=== PATIENT | female | born 1965 | race Caucasian/White ===

== ENCOUNTER 2022-04-09 10:22 | Inpatient (IN) | payer MEDICAID ==
[~2022-04-09] VITALS: Ht 167.6 cm; Wt 129.1 kg
[2022-04-09 10:46] LABS: BASOPHILS # (AUTO) 0.1 X10'3 (0-0.2); BASOPHILS % (AUTO) 0.8 % (0-1); EOSINOPHILS # (AUTO) 0.1 X10'3 (0-0.9); EOSINOPHILS % (AUTO) 1.4 % (0-6); HEMOGLOBIN 13.4 g/dl (12.0-16.0); LYMPHOCYTES # (AUTO) 1.3 X10'3 (1.1-4.8); LYMPHOCYTES % (AUTO) 18.6 % (21-51); MEAN CORPUSCULAR HEMOGLOBIN 31.4 PG (27.0-31.0); MEAN CORPUSCULAR HGB CONC 31.8 g/dL (33.0-36.5); MEAN CORPUSCULAR VOLUME 98.8 FL (78-98); MEAN PLATELET VOLUME 8.7 FL (7.4-10.4); MONOCYTES # (AUTO) 0.5 X10'3 (0-0.9); MONOCYTES % (AUTO) 7.6 % (2-12); NEUTROPHILS % (AUTO) 71.6 % (42-75); PLATELET COUNT 217 X10'3 (140-440); RED BLOOD COUNT 4.25 X10'6 (4.20-5.60); RED CELL DISTRIBUTION WIDTH 16.3 % (11.5-14.5)
[2022-04-09] MEDS ORDERED: furosemide 10 MG/1 ML 10ml inj IV ONE (11:00)
[2022-04-09 11:05] LABS: ALANINE AMINOTRANSFERASE 20 U/L (12-78); ALBUMIN 3.3 G/DL (3.4-5.0); ALBUMIN/GLOBULIN RATIO 0.7 (1.1-1.5); ALKALINE PHOSPHATASE 67 IU/L (46-116); ANION GAP 10 (8-16); ASPARTATE AMINO TRANSFERASE 27 U/L (10-37); BILIRUBIN,TOTAL 1.6 MG/DL (0.1-1.0); BLOOD UREA NITROGEN 9 MG/DL (7-18); BUN/CREATININE RATIO 11.4 (6.6-38.0); CALCIUM 9.1 MG/DL (8.5-10.1); CHLORIDE 101 MMOL/L (99-107); CREATININE 0.79 MG/DL (0.40-0.90); GLUCOSE 189 MG/DL (70-104); MAGNESIUM 1.8 MG/DL (1.5-2.4); SODIUM 137 MMOL/L (135-145); TOTAL CARBON DIOXIDE 26.5 MMOL/L (24-32); TOTAL PROTEIN 7.8 G/DL (6.4-8.2); eGFR 75 ML/MIN
[2022-04-09] MEDS ORDERED: metoprolol tartrate 1mg/ml inj IV ONE (12:10)
[2022-04-09] MEDS ORDERED: metoprolol tartrate 25mg tablet PO ONE (13:45)
[2022-04-09] MEDS ORDERED: magnesium hydroxide 30ml (MOM) UD suspension PO PRN (13:50)
[2022-04-09] MEDS ORDERED: acetaminophen 325mg tablet PO PRN (13:50)
[2022-04-09] MEDS ORDERED: magnesium 4gm in 100ml NS 100 ML IV PRN (13:50)
[2022-04-09] MEDS ORDERED: magnesium Cl slow-release 64mg tablet PO PRN (13:50)
[2022-04-09] MEDS ORDERED: HYDROcodone/acetaminophen 5mg/325mg tablet PO PRN (13:50)
[2022-04-09] MEDS ORDERED: potassium Cl 40MEQ/1/2NS 520ml 520 ML IV PRN (13:50)
[2022-04-09] MEDS ORDERED: ondansetron/PF 4mg/2ml inj IV PRN (13:50)
[2022-04-09] MEDS ORDERED: mag hydrox/Alum hydrox/simeth 30ml oral suspension PO PRN (13:50)
[2022-04-09] MEDS ORDERED: potassium Cl 20 mEq SR tablet PO PRN ×2 (13:50)
[2022-04-09] MEDS ORDERED: NO HOME MEDS (15:09)
--- NOTE | 2022-04-09 17:07 | NUR ---
PATIENT HAS INCREASING HEART RATE UP TO 162 BPM. PATIENT DENIES PAIN OR SOB. DR. MACIAS PAGED WITH THIS INFORMATION FOR FURTHER ORDERS.
--- NOTE | 2022-04-09 17:57 | NUR ---
Patient in room U 3018. I have received report from Laine OLIVEIRA and had the opportunity to ask questions and assume patient care. Pt settled into room. Tele applied. Pt moved from gurney to bed under own power. Addendum: 04/09/22 at 1759 by Emma Weeks RN Amended: Links added.
[2022-04-09 18:19] VITALS: BP 99/68
--- NOTE | 2022-04-09 18:21 | NUR ---
Problems reprioritized. Patient report given, questions answered & plan of care reviewed with Moustapha OLIVEIRA. Bedside report completed.Pt eating dinner. Addendum: 04/09/22 at 1822 by Emma Weeks RN Amended: Links added.
--- NOTE | 2022-04-09 18:52 | NUR ---
Patient in bed with the head of the bed in semi-fowlers. Patient is alert and oriented times 4. Call light within reach and all other personal belongings within reach of patient
[2022-04-09] MEDS: lisinopril 5mg tablet PO SCH (19:35)
[2022-04-09] MEDS: docusate sod 100mg capsule PO SCH (20:00)
[2022-04-09] MEDS: K and/or MAG REPLACEMENT MC SCH (20:00)
[2022-04-09] MEDS ORDERED: carvedilol 6.25mg tablet PO SCH (20:00)
[2022-04-10 03:00] VITALS: BP 112/85
--- NOTE | 2022-04-10 05:45 | NUR ---
Patient in bed with the head of the bed in a high-fowlers position. patient has no signs or symptoms of distress. call light within reach and all personal belongings within reach
[2022-04-10 06:00] VITALS: BP 91/64
--- NOTE | 2022-04-10 06:28 | NUR ---
Patient in room PCU 3018. I have received report from Moustapha OLIVEIRA and had the opportunity to ask questions and assume patient care. Bedside report completed. Pt awake and alert. Call light in reach. Addendum: 04/10/22 at 0636 by Emma Weeks RN Amended: Links added.
[2022-04-10 07:23] LABS: BASOPHILS # (AUTO) 0.1 X10'3 (0-0.2); BASOPHILS % (AUTO) 1.3 % (0-1); EOSINOPHILS # (AUTO) 0.1 X10'3 (0-0.9); EOSINOPHILS % (AUTO) 1.7 % (0-6); HEMATOCRIT 36.6 % (35.0-45.0); HEMOGLOBIN 12.1 g/dl (12.0-16.0); LYMPHOCYTES # (AUTO) 1.1 X10'3 (1.1-4.8); LYMPHOCYTES % (AUTO) 18.2 % (21-51); MEAN CORPUSCULAR HEMOGLOBIN 32.5 PG (27.0-31.0); MEAN CORPUSCULAR HGB CONC 33.1 g/dL (33.0-36.5); MEAN CORPUSCULAR VOLUME 98.3 FL (78-98); MEAN PLATELET VOLUME 8.5 FL (7.4-10.4); MONOCYTES # (AUTO) 0.6 X10'3 (0-0.9); MONOCYTES % (AUTO) 10.1 % (2-12); NEUTROPHILS # (AUTO) 4.2 X10'3 (1.8-7.7); NEUTROPHILS % (AUTO) 68.7 % (42-75); PLATELET COUNT 199 X10'3 (140-440); RED BLOOD COUNT 3.72 X10'6 (4.20-5.60); RED CELL DISTRIBUTION WIDTH 15.7 % (11.5-14.5); WHITE BLOOD COUNT 6.1 X10'3 (4.5-11.0)
[2022-04-10 07:40] LABS: ALANINE AMINOTRANSFERASE 21 U/L (12-78); ALBUMIN/GLOBULIN RATIO 0.8 (1.1-1.5); ALKALINE PHOSPHATASE 56 IU/L (46-116); ANION GAP 5 (8-16); ASPARTATE AMINO TRANSFERASE 27 U/L (10-37); BILIRUBIN,TOTAL 1.5 MG/DL (0.1-1.0); BLOOD UREA NITROGEN 12 MG/DL (7-18); BUN/CREATININE RATIO 13.5 (6.6-38.0); CALCIUM 8.6 MG/DL (8.5-10.1); CHLORIDE 101 MMOL/L (99-107); CREATININE 0.89 MG/DL (0.40-0.90); GLUCOSE 140 MG/DL (70-104); MAGNESIUM 1.6 MG/DL (1.5-2.4); POTASSIUM 4.3 MMOL/L (3.5-5.1); SODIUM 136 MMOL/L (135-145); TOTAL CARBON DIOXIDE 30.2 MMOL/L (24-32); TOTAL PROTEIN 6.9 G/DL (6.4-8.2); eGFR 66 ML/MIN
--- NOTE | 2022-04-10 07:52 | NUR ---
PAGER ID: [phone] MESSAGE: [id number] Neyda cee RVR , CHF would you like her to have an anti coag? Emma NG
[2022-04-10] MEDS: K and/or MAG REPLACEMENT MC SCH ×2 (08:00→19:41)
[2022-04-10] MEDS: docusate sod 100mg capsule PO SCH ×2 (08:00→19:41)
--- NOTE | 2022-04-10 08:05 | NUR ---
Dr Rodriguez called. New orders written.
[2022-04-10] MEDS: apixaban 5mg tablet PO SCH (08:29)
[2022-04-10] MEDS: carVEDilol 3.125mg tablet PO SCH ×2 (08:29→19:38)
[2022-04-10] MEDS: lisinopril 5mg tablet PO SCH (10:13)
[2022-04-10 11:00] VITALS: BP 102/65
--- NOTE | 2022-04-10 11:23 | NUR ---
PAGER ID: [phone] MESSAGE: [id number] Nickitte I have medication questions concerning her. Please call Emma [facility] #[phone]
[2022-04-10] MEDS ORDERED: LORazepam 2 mg/ml vial IV PRN (11:55)
[2022-04-10] MEDS: furosemide 20 MG/2 ML vial IV SCH ×2 (12:11→19:39)
[2022-04-10] MEDS: calcium carbonate 500mg chew tablet PO SCH ×2 (12:30→17:24)
[2022-04-10 15:01] VITALS: BP 96/51
[2022-04-10 18:00] VITALS: BP 107/60
--- NOTE | 2022-04-10 18:09 | NUR ---
Problems reprioritized. Patient report given, questions answered & plan of care reviewed with Moustapha OLIVEIRA. Bedside report completed. Pt in no distress.. Addendum: 04/10/22 at 1810 by Emma Weeks RN Amended: Links added.
--- NOTE | 2022-04-10 18:31 | NUR ---
Patient in bed with the head of the bed elevated to semi-fowlers position. patient alert and oriented times 4. Call light within reach and all personal belongings within reach
[2022-04-10] MEDS ORDERED: albumin (human) 25% 100 ML IV solution IV ONE (19:50)
[2022-04-10] MEDS ORDERED: albumin (Human) 5% 250ml 500 ML IV ONE (19:50)
[2022-04-10] MEDS ORDERED: digoxin 250mcg/ml 2ml ampule IV ONE ×2 (20:00)
[2022-04-10] MEDS ORDERED: ipratropium/albuterol 3ml nebule NEB PRN (20:00)
--- NOTE | 2022-04-10 20:19 | NUR ---
Called Dr. Guzman, to make him aware that the Patient refused CT scan, no new orders given.
[2022-04-10 20:22] LABS: D-DIMER 2.26 MG/L FEU (0-0.50)
[2022-04-10 20:28] LABS: HEMOGLOBIN A1C 6.7 % (4.5-6.2)
--- NOTE | 2022-04-10 20:28 | NUR ---
notified Dr. Guzman that the patient refused albumin and Lanoxin. No new order given
[2022-04-10 20:40] LABS: CHOL/HDL RATIO 4.7 (0.00-4.99); CHOLESTEROL 109 MG/DL (0-200); CREATINE KINASE 30 U/L (26-192); HDL CHOLESTEROL 23 MG/DL (35-60); LDL CHOLESTEROL 68 MG/DL (50-100); LIPASE 250 U/L (73-393); MAGNESIUM 1.7 MG/DL (1.5-2.4); PHOSPHORUS 4.5 MG/DL (2.3-4.5); TRIGLYCERIDES 87 MG/DL (20-135)
[2022-04-10 20:55] LABS: OSMOLALITY 289 MOSM/K (280-300)
[2022-04-11 02:00] VITALS: BP 110/63
[2022-04-11] MEDS ORDERED: digoxin 250mcg/ml 2ml ampule IV SCH (02:00)
--- NOTE | 2022-04-11 05:52 | NUR ---
patient in bed with the head of the bed in high fowlers position. Patient is alert and oriented times 4. Call light within reach and all personal belongings within reach
--- NOTE | 2022-04-11 06:56 | NUR ---
Assumed pt care without handoff report from reema OLIVEIRA; received brief from Franklin mancia RN. Addendum: 04/11/22 at 0814 by Qian Schaeffer RN Cancelled 04/10 0800 dose of Xarelto per previous shift and new orders entered. Addendum: 04/11/22 at 0932 by Qian Schaeffer RN Provided clean hat for UA. Pt educated and will call RN for sample.
[2022-04-11 07:00] VITALS: BP 118/65
[2022-04-11 07:30] LABS: BASOPHILS # (AUTO) 0.1 X10'3 (0-0.2); BASOPHILS % (AUTO) 1.1 % (0-1); EOSINOPHILS # (AUTO) 0.1 X10'3 (0-0.9); EOSINOPHILS % (AUTO) 2.1 % (0-6); HEMATOCRIT 37.7 % (35.0-45.0); HEMOGLOBIN 12.7 g/dl (12.0-16.0); LYMPHOCYTES # (AUTO) 1.3 X10'3 (1.1-4.8); LYMPHOCYTES % (AUTO) 20.6 % (21-51); MEAN CORPUSCULAR HEMOGLOBIN 32.8 PG (27.0-31.0); MEAN CORPUSCULAR HGB CONC 33.7 g/dL (33.0-36.5); MEAN CORPUSCULAR VOLUME 97.2 FL (78-98); MONOCYTES # (AUTO) 0.7 X10'3 (0-0.9); MONOCYTES % (AUTO) 10.1 % (2-12); NEUTROPHILS # (AUTO) 4.3 X10'3 (1.8-7.7); NEUTROPHILS % (AUTO) 66.1 % (42-75); PLATELET COUNT 213 X10'3 (140-440); RED BLOOD COUNT 3.88 X10'6 (4.20-5.60); RED CELL DISTRIBUTION WIDTH 15.8 % (11.5-14.5); WHITE BLOOD COUNT 6.5 X10'3 (4.5-11.0)
[2022-04-11 07:40] LABS: ALANINE AMINOTRANSFERASE 22 U/L (12-78); ALBUMIN 3.1 G/DL (3.4-5.0); ALBUMIN/GLOBULIN RATIO 0.8 (1.1-1.5); ALKALINE PHOSPHATASE 58 IU/L (46-116); ANION GAP 6 (8-16); ASPARTATE AMINO TRANSFERASE 32 U/L (10-37); BILIRUBIN,TOTAL 1.3 MG/DL (0.1-1.0); BLOOD UREA NITROGEN 15 MG/DL (7-18); CALCIUM 8.7 MG/DL (8.5-10.1); CHLORIDE 100 MMOL/L (99-107); CREATININE 0.88 MG/DL (0.40-0.90); GLUCOSE 127 MG/DL (70-104); MAGNESIUM 1.7 MG/DL (1.5-2.4); POTASSIUM 4.1 MMOL/L (3.5-5.1); SODIUM 136 MMOL/L (135-145); TOTAL CARBON DIOXIDE 30.5 MMOL/L (24-32); TOTAL PROTEIN 7.2 G/DL (6.4-8.2); eGFR 66 ML/MIN
[2022-04-11] MEDS: apixaban 5mg tablet PO SCH ×3 (07:55→19:57)
[2022-04-11] MEDS: K and/or MAG REPLACEMENT MC SCH ×2 (08:00→20:00)
[2022-04-11] MEDS: furosemide 10 MG/1 ML 10ml inj IV SCH ×2 (08:28→20:00)
[2022-04-11] MEDS: calcium carbonate 500mg chew tablet PO SCH ×3 (08:29→16:59)
[2022-04-11] MEDS: lisinopril 5mg tablet PO SCH (08:30)
[2022-04-11] MEDS: carVEDilol 3.125mg tablet PO SCH ×2 (08:30→20:00)
[2022-04-11] MEDS: docusate sod 100mg capsule PO SCH ×2 (08:30→20:00)
[2022-04-11 10:49] LABS: CLARITY,URINE CLEAR (Clear); COLOR,URINE STRAW (Yellow); GLUCOSE, URINE NEGATIVE (Neg); KETONES,URINE NEGATIVE (Neg); LEUKOCYTE ESTERASE ,URINE SMALL (Neg); NITRITES, URINE NEGATIVE (Neg); OCCULT BLOOD,URINE NEGATIVE (Neg); PH,URINE 5.5 (4.8-8.0); PROTEIN,URINE NEGATIVE (Neg); URINE AMPHETAMINE SCREEN NEGATIVE (Neg); URINE BARBITUATE SCREEN NEGATIVE (Neg); URINE BENZODIAZEPINES SCREEN NEGATIVE (Neg); URINE CANNABINOID SCREEN NEGATIVE (Neg); URINE COCAINE SCREEN NEGATIVE (Neg); URINE METHADONE SCREEN NEGATIVE (Neg); URINE OPIATE SCREEN NEGATIVE (Neg); URINE PHENCYCLIDINE SCREEN NEGATIVE (Neg); UROBILINOGEN,URINE 0.2 E.U/dL (0.2-1.0)
[2022-04-11 10:50] LABS: UA COLLECTION TYPE NON-SPECIFIED
[2022-04-11 10:59] LABS: BACTERIA,URINE FEW /HPF (Neg); MUCUS STRANDS NONE SEEN /LPF (Neg); RBC,URINE NONE SEEN /HPF (0-2); SQUAMOUS EPITHELIAL CELL,UR FEW /LPF (FEW); WBC,URINE 0-4 /HPF (0-4)
[2022-04-11 12:00] VITALS: BP 101/64
--- NOTE | 2022-04-11 12:51 | NUR ---
Paged Dr Angel: Neyda 18A: FYI: pt unable to lie flat for CT and NM VQ scan. Will reassess tomorrow. Qian 0901
--- NOTE | 2022-04-11 18:54 | NUR ---
Patient ain bed with the head of the bed in a high fowlers position. Patient has no signs or symptoms of distress. Call light within reach and all personal belongings within reach.
--- NOTE | 2022-04-11 21:54 | NUR ---
Spoke with to make aware that patient systolic is 104 can we hold pm Lasix and Coreg for tonight only, Dr. Hinds stated yes
[2022-04-12] VITALS (12 sets, daily range): BP systolic 100–123; BP diastolic 63–96
--- NOTE | 2022-04-12 05:47 | NUR ---
Patient in bed with the head of the bed in high-fowlers position watching TV. Call light within reach of patient and all personal belongings.
[2022-04-12 06:35] LABS: BASOPHILS # (AUTO) 0.1 X10'3 (0-0.2); BASOPHILS % (AUTO) 1.3 % (0-1); EOSINOPHILS # (AUTO) 0.1 X10'3 (0-0.9); HEMATOCRIT 37.2 % (35.0-45.0); HEMOGLOBIN 12.5 g/dl (12.0-16.0); LYMPHOCYTES % (AUTO) 18.1 % (21-51); MEAN CORPUSCULAR HEMOGLOBIN 32.8 PG (27.0-31.0); MEAN CORPUSCULAR HGB CONC 33.7 g/dL (33.0-36.5); MEAN CORPUSCULAR VOLUME 97.3 FL (78-98); MEAN PLATELET VOLUME 8.4 FL (7.4-10.4); MONOCYTES # (AUTO) 0.5 X10'3 (0-0.9); MONOCYTES % (AUTO) 10.2 % (2-12); NEUTROPHILS # (AUTO) 3.7 X10'3 (1.8-7.7); NEUTROPHILS % (AUTO) 68.4 % (42-75); PLATELET COUNT 210 X10'3 (140-440); RED BLOOD COUNT 3.82 X10'6 (4.20-5.60); WHITE BLOOD COUNT 5.3 X10'3 (4.5-11.0)
[2022-04-12 06:49] LABS: ALANINE AMINOTRANSFERASE 19 U/L (12-78); ALBUMIN/GLOBULIN RATIO 0.8 (1.1-1.5); ALKALINE PHOSPHATASE 58 IU/L (46-116); ANION GAP 4 (8-16); ASPARTATE AMINO TRANSFERASE 32 U/L (10-37); BLOOD UREA NITROGEN 15 MG/DL (7-18); BUN/CREATININE RATIO 18.5 (6.6-38.0); CALCIUM 8.6 MG/DL (8.5-10.1); CHLORIDE 101 MMOL/L (99-107); CREATININE 0.81 MG/DL (0.40-0.90); GLUCOSE 136 MG/DL (70-104); MAGNESIUM 1.7 MG/DL (1.5-2.4); POTASSIUM 3.9 MMOL/L (3.5-5.1); SODIUM 137 MMOL/L (135-145); TOTAL CARBON DIOXIDE 31.8 MMOL/L (24-32); eGFR 73 ML/MIN
[2022-04-12] MEDS: lisinopril 5mg tablet PO SCH (08:00)
--- NOTE | 2022-04-12 08:02 | NUR ---
Paged Dr Rodriguez: Neyda [id number]. BP dropped with Lasix. Held last noc. BP 118/65, HR 94-108. Can you please call me about BP meds? Something to control the rate vs pressure. Qian [id number]
[2022-04-12] MEDS: furosemide 10 MG/1 ML 10ml inj IV SCH (09:29)
[2022-04-12] MEDS: apixaban 5mg tablet PO SCH ×2 (09:29→19:36)
[2022-04-12] MEDS: K and/or MAG REPLACEMENT MC SCH ×2 (09:29→20:00)
[2022-04-12] MEDS: docusate sod 100mg capsule PO SCH ×2 (09:29→20:00)
[2022-04-12] MEDS: carVEDilol 3.125mg tablet PO SCH (09:29)
[2022-04-12] MEDS: calcium carbonate 500mg chew tablet PO SCH ×3 (09:29→17:30)
--- NOTE | 2022-04-12 13:40 | NUR ---
RLE +3 edema, LLE +1 edema
[2022-04-12] MEDS: furosemide inj 100 MG in normal saline 100ml IV soln 90 ML IV SCH (19:48)
[2022-04-12] MEDS: metoprolol tartrate 25mg tablet PO SCH (20:00)
[2022-04-13] VITALS (17 sets, daily range): BP systolic 92–128; BP diastolic 58–92
[2022-04-13] MEDS: furosemide inj 100 MG in normal saline 100ml IV soln 90 ML IV SCH ×3 (04:11→22:19)
--- NOTE | 2022-04-13 06:08 | NUR ---
Patient in bed with the head of the bed in a high fowlers position. Patient has no signs or symptoms of distress. call light within reach and all personal belongings within reach
--- NOTE | 2022-04-13 06:20 | NUR ---
Patient in room PCU 3018. I have received report from Moustapha OLIVEIRA and had the opportunity to ask questions and assume patient care. Bedside report completed. Pt awake and denies needs, Call light in reach. Lasix Gtt running at 10mg/hr. Addendum: 04/13/22 at 0648 by Emma Weeks RN Amended: Links added.
[2022-04-13 06:35] LABS: BASOPHILS # (AUTO) 0.1 X10'3 (0-0.2); BASOPHILS % (AUTO) 1.4 % (0-1); EOSINOPHILS # (AUTO) 0.1 X10'3 (0-0.9); HEMATOCRIT 36.6 % (35.0-45.0); HEMOGLOBIN 12.3 g/dl (12.0-16.0); LYMPHOCYTES % (AUTO) 17.5 % (21-51); MEAN CORPUSCULAR HEMOGLOBIN 32.7 PG (27.0-31.0); MEAN CORPUSCULAR HGB CONC 33.5 g/dL (33.0-36.5); MEAN CORPUSCULAR VOLUME 97.5 FL (78-98); MEAN PLATELET VOLUME 8.8 FL (7.4-10.4); MONOCYTES # (AUTO) 0.6 X10'3 (0-0.9); NEUTROPHILS # (AUTO) 3.8 X10'3 (1.8-7.7); NEUTROPHILS % (AUTO) 68.1 % (42-75); PLATELET COUNT 196 X10'3 (140-440); RED BLOOD COUNT 3.75 X10'6 (4.20-5.60); RED CELL DISTRIBUTION WIDTH 15.5 % (11.5-14.5); WHITE BLOOD COUNT 5.6 X10'3 (4.5-11.0)
[2022-04-13 07:03] LABS: ALANINE AMINOTRANSFERASE 29 U/L (12-78); ALBUMIN 3.2 G/DL (3.4-5.0); ALBUMIN/GLOBULIN RATIO 0.7 (1.1-1.5); ALKALINE PHOSPHATASE 59 IU/L (46-116); ANION GAP 7 (8-16); ASPARTATE AMINO TRANSFERASE 48 U/L (10-37); BILIRUBIN,TOTAL 1.3 MG/DL (0.1-1.0); BLOOD UREA NITROGEN 13 MG/DL (7-18); BUN/CREATININE RATIO 17.6 (6.6-38.0); CALCIUM 8.6 MG/DL (8.5-10.1); CHLORIDE 98 MMOL/L (99-107); CREATININE 0.74 MG/DL (0.40-0.90); GLUCOSE 133 MG/DL (70-104); MAGNESIUM 1.5 MG/DL (1.5-2.4); POTASSIUM 3.1 MMOL/L (3.5-5.1); SODIUM 139 MMOL/L (135-145); TOTAL CARBON DIOXIDE 33.8 MMOL/L (24-32); TOTAL PROTEIN 7.6 G/DL (6.4-8.2); eGFR 81 ML/MIN
[2022-04-13] MEDS: docusate sod 100mg capsule PO SCH ×2 (07:59→19:42)
[2022-04-13] MEDS ORDERED: magnesium 4gm in 100ml NS 100 ML IV PRN (08:00)
[2022-04-13] MEDS: metoprolol tartrate 25mg tablet PO SCH ×2 (08:00→19:43)
[2022-04-13] MEDS: K and/or MAG REPLACEMENT MC SCH ×3 (08:00→20:00)
[2022-04-13] MEDS ORDERED: magnesium Cl slow-release 64mg tablet PO PRN (08:00)
[2022-04-13] MEDS ORDERED: potassium Cl 20 mEq SR tablet PO PRN (08:00)
[2022-04-13] MEDS: apixaban 5mg tablet PO SCH ×2 (08:00→19:43)
[2022-04-13] MEDS: calcium carbonate 500mg chew tablet PO SCH ×3 (08:02→17:30)
[2022-04-13] MEDS: potassium Cl 20 mEq SR tablet PO PRN ×3 (08:53→17:40)
[2022-04-13] MEDS: potassium Cl 20 mEq SR tablet PO SCH (17:39)
--- NOTE | 2022-04-13 18:22 | NUR ---
Problems reprioritized. Patient report given, questions answered & plan of care reviewed with Moustapha OLIVEIRA. Bedside report completed. Pt eating dinner. No distress. Addendum: 04/13/22 at 1823 by Emma Weeks RN Amended: Links added.
--- NOTE | 2022-04-13 18:47 | NUR ---
Patient in bed sitting on the bed. Patient watching TV. Call light within reach and all personal belongings within reach
[2022-04-13] MEDS: sacubitril/valsartan 24mg-26mg tablet PO SCH (21:00)
[2022-04-14] VITALS (13 sets, daily range): BP systolic 96–118; BP diastolic 63–82
--- NOTE | 2022-04-14 06:08 | NUR ---
Patient in room PCU 3018. I have received report from Moustapha OLIVEIRA and had the opportunity to ask questions and assume patient care.Bedside report completed.Pt awake and alert.Denies needs. Addendum: 04/14/22 at 0613 by Emma Weeks RN Amended: Links added.
--- NOTE | 2022-04-14 06:10 | NUR ---
Patient in bed with the head of the bed in a semi-fowlers position. Patient has no signs or symptoms of distress. call light within reach and all personal belongings within reach.
[2022-04-14 06:21] LABS: BASOPHILS # (AUTO) 0.1 X10'3 (0-0.2); EOSINOPHILS # (AUTO) 0.1 X10'3 (0-0.9); EOSINOPHILS % (AUTO) 1.8 % (0-6); HEMATOCRIT 37.7 % (35.0-45.0); HEMOGLOBIN 12.6 g/dl (12.0-16.0); LYMPHOCYTES # (AUTO) 1.3 X10'3 (1.1-4.8); LYMPHOCYTES % (AUTO) 19.7 % (21-51); MEAN CORPUSCULAR HEMOGLOBIN 32.5 PG (27.0-31.0); MEAN CORPUSCULAR HGB CONC 33.4 g/dL (33.0-36.5); MEAN CORPUSCULAR VOLUME 97.4 FL (78-98); MEAN PLATELET VOLUME 8.6 FL (7.4-10.4); MONOCYTES # (AUTO) 0.8 X10'3 (0-0.9); MONOCYTES % (AUTO) 11.8 % (2-12); NEUTROPHILS # (AUTO) 4.3 X10'3 (1.8-7.7); NEUTROPHILS % (AUTO) 65.7 % (42-75); PLATELET COUNT 204 X10'3 (140-440); RED BLOOD COUNT 3.87 X10'6 (4.20-5.60); RED CELL DISTRIBUTION WIDTH 15.9 % (11.5-14.5); WHITE BLOOD COUNT 6.5 X10'3 (4.5-11.0)
[2022-04-14 06:41] LABS: ALANINE AMINOTRANSFERASE 26 U/L (12-78); ALBUMIN 3.2 G/DL (3.4-5.0); ALBUMIN/GLOBULIN RATIO 0.8 (1.1-1.5); ALKALINE PHOSPHATASE 60 IU/L (46-116); ANION GAP 8 (8-16); ASPARTATE AMINO TRANSFERASE 32 U/L (10-37); BILIRUBIN,TOTAL 1.5 MG/DL (0.1-1.0); BLOOD UREA NITROGEN 12 MG/DL (7-18); BUN/CREATININE RATIO 15.6 (6.6-38.0); CALCIUM 8.6 MG/DL (8.5-10.1); CHLORIDE 97 MMOL/L (99-107); CREATININE 0.77 MG/DL (0.40-0.90); GLUCOSE 129 MG/DL (70-104); POTASSIUM 3.4 MMOL/L (3.5-5.1); SODIUM 139 MMOL/L (135-145); TOTAL PROTEIN 7.4 G/DL (6.4-8.2); eGFR 78 ML/MIN
[2022-04-14] MEDS: sacubitril/valsartan 24mg-26mg tablet PO SCH ×2 (07:19→19:08)
[2022-04-14] MEDS: docusate sod 100mg capsule PO SCH ×2 (07:19→19:08)
[2022-04-14] MEDS: apixaban 5mg tablet PO SCH ×2 (07:20→19:13)
[2022-04-14] MEDS: metoprolol tartrate 25mg tablet PO SCH ×2 (07:20→19:09)
[2022-04-14] MEDS: potassium Cl 20 mEq SR tablet PO SCH ×3 (07:24→17:23)
[2022-04-14] MEDS: K and/or MAG REPLACEMENT MC SCH ×2 (08:00→20:00)
[2022-04-14] MEDS: calcium carbonate 500mg chew tablet PO SCH ×3 (08:30→17:30)
[2022-04-14] MEDS: furosemide inj 100 MG in normal saline 100ml IV soln 90 ML IV SCH ×2 (08:45→20:10)
[2022-04-14] MEDS: potassium Cl 20 mEq SR tablet PO PRN ×3 (08:46→17:23)
--- NOTE | 2022-04-14 11:42 | NUR ---
ROXANNE paged for abg, abg drawn, per Dr Rodriguez abg drawn on incorrect patient, abg drawn in error, notified. Addendum: 04/14/22 at 1143 by Breanna Balbuena RT Amended: Links added.
--- NOTE | 2022-04-14 18:15 | NUR ---
Problems reprioritized. Patient report given, questions answered & plan of care reviewed with Moustapha OLIVEIRA. Bedside report completed. Pt denies needs, eating dinner, visiting with family.. Addendum: 04/14/22 at 1815 by Emma Weeks RN Amended: Links added.
[2022-04-15] VITALS (9 sets, daily range): BP systolic 91–126; BP diastolic 56–77
--- NOTE | 2022-04-15 05:30 | NUR ---
Patient in bed with the head of the bed elevated to semi-fowlers position. Patient has no signs or symptoms of distress. call light within reach and all personal belongings within reach of patient
--- NOTE | 2022-04-15 06:03 | NUR ---
Patient in room PCU 3018. I have received report from Moustapha OLIVEIRA and had the opportunity to ask questions and assume patient care.Bedside report completed. Pt sleeping. Call light in reach. Addendum: 04/15/22 at 0604 by Emma Weeks RN Amended: Links added.
[2022-04-15] MEDS: furosemide inj 100 MG in normal saline 100ml IV soln 90 ML IV SCH (06:17)
[2022-04-15] MEDS: sacubitril/valsartan 24mg-26mg tablet PO SCH (08:13)
[2022-04-15] MEDS: potassium Cl 20 mEq SR tablet PO SCH (08:13)
[2022-04-15] MEDS: apixaban 5mg tablet PO SCH (08:14)
[2022-04-15] MEDS: metoprolol tartrate 25mg tablet PO SCH (08:14)
[2022-04-15] MEDS: docusate sod 100mg capsule PO SCH (08:16)
[2022-04-15] MEDS: calcium carbonate 500mg chew tablet PO SCH ×2 (08:30→12:30)
[2022-04-15 08:53] LABS: ALANINE AMINOTRANSFERASE 26 U/L (12-78); ALBUMIN 3.1 G/DL (3.4-5.0); ALBUMIN/GLOBULIN RATIO 0.7 (1.1-1.5); ALKALINE PHOSPHATASE 59 IU/L (46-116); ANION GAP 5 (8-16); ASPARTATE AMINO TRANSFERASE 39 U/L (10-37); BILIRUBIN,TOTAL 1.7 MG/DL (0.1-1.0); BLOOD UREA NITROGEN 13 MG/DL (7-18); BUN/CREATININE RATIO 16.9 (6.6-38.0); CALCIUM 8.9 MG/DL (8.5-10.1); CHLORIDE 96 MMOL/L (99-107); CREATININE 0.77 MG/DL (0.40-0.90); GLUCOSE 144 MG/DL (70-104); POTASSIUM 3.3 MMOL/L (3.5-5.1); SODIUM 136 MMOL/L (135-145); TOTAL PROTEIN 7.4 G/DL (6.4-8.2); eGFR 78 ML/MIN
[2022-04-15] MEDS: K and/or MAG REPLACEMENT MC SCH (09:30)
--- NOTE | 2022-04-15 09:32 | NUR ---
Initial: Pt admit for new onset CHF and A.fib with RVR. Currently on a heart healthy diet and eating well, documented with mostly 100% PO intake since admit meeting estimated nutrient needs. Noted lipid panel is WNL with the exception of slightly low HDL. LBM 04/14. No nutrition intervention implemented at this time. Will continue to follow. Recommendations: 1) Continue heart healthy diet 2) Monitor need for additional protein for satiety 3) Routine bowel care 4) Weekly scaled weights Addendum: 04/15/22 at [address] Amended: Links added.
[2022-04-15] MEDS ORDERED: APIX5TAB3 PO (12:37)
[2022-04-15] MEDS ORDERED: METO-395 PO (12:37)
[2022-04-15] MEDS ORDERED: FURO40TA4 PO (12:37)
[2022-04-15] MEDS ORDERED: SPIR25TA PO (12:37)
[2022-04-15] MEDS ORDERED: SACU1TAB PO (12:37)
[2022-04-15] MEDS: potassium Cl 20 mEq SR tablet PO PRN (13:17)
--- NOTE | 2022-04-15 14:38 | NUR ---
All written and verbal orders for D/c given. All questions answered. Pt stated she had all belongings. Home with family. Addendum: 04/15/22 at 1514 by Emma Weeks RN Amended: Links added.
[2022-04-16] MEDS ORDERED: metoprolol succinate 25mg (24-HOUR) SR. Tablet PO SCH (08:00)
[2022-04-16] MEDS ORDERED: spironolactone 25 MG tablet PO SCH (08:30)
== END 2022-04-15 14:35 | disposition home or self-care (01) | DRG 201 ==
LOC: ER 10:23 → ED HOLD 13:51 → EDBEDREQ 16:09 → PCU 3S 17:57
PROVIDERS: ADMIT Internal Medicine; ATTEND Internal Medicine
DX: I48.0 Paroxysmal atrial fibrillation (principal); I50.20 Unspecified systolic (congestive) heart failure; E87.6 Hypokalemia; I25.5 Ischemic cardiomyopathy; Z79.01 Long term (current) use of anticoagulants; Z79.899 Other long term (current) drug therapy; Z87.891 Personal history of nicotine dependence
CPT/HCPCS: 36415; 71045; 80053; 80061; 80305; 81001; 82550; 83036; 83605; 83690; 83735; 83880; 83930; 84100; 84145; 84443; 84484; 85025; 85379; 87081; 87088; 93005; 93306; 94760; 96374; 96375; 99285; A4615; A6258; G0378; J1940; J2060; J3490

== ENCOUNTER 2022-07-16 07:23 | Outpatient (CLI) | payer MEDICAID ==
[~2022-07-16 07:23] MED LIST: APIX5TAB3 PO; METO-395 PO; NO HOME MEDS; SACU1TAB PO; SPIR25TA PO
[2022-07-16 08:05] LABS: BASOPHILS # (AUTO) 0.1 X10'3 (0-0.2); BASOPHILS % (AUTO) 1.4 % (0-1); EOSINOPHILS # (AUTO) 0.3 X10'3 (0-0.9); EOSINOPHILS % (AUTO) 4.8 % (0-6); HEMOGLOBIN 15.2 g/dl (12.0-16.0); LYMPHOCYTES # (AUTO) 2.3 X10'3 (1.1-4.8); LYMPHOCYTES % (AUTO) 33.4 % (21-51); MEAN CORPUSCULAR HEMOGLOBIN 31.5 PG (27.0-31.0); MEAN CORPUSCULAR HGB CONC 33.7 g/dL (33.0-36.5); MEAN CORPUSCULAR VOLUME 93.6 FL (78-98); MEAN PLATELET VOLUME 9.2 FL (7.4-10.4); MONOCYTES # (AUTO) 0.5 X10'3 (0-0.9); MONOCYTES % (AUTO) 7.4 % (2-12); NEUTROPHILS # (AUTO) 3.6 X10'3 (1.8-7.7); PLATELET COUNT 230 X10'3 (140-440); RED BLOOD COUNT 4.81 X10'6 (4.20-5.60); RED CELL DISTRIBUTION WIDTH 15.1 % (11.5-14.5); WHITE BLOOD COUNT 6.8 X10'3 (4.5-11.0)
[2022-07-16 08:53] LABS: ALBUMIN 3.6 G/DL (3.4-5.0); ANION GAP 4 (8-16); BLOOD UREA NITROGEN 18 MG/DL (7-18); BUN/CREATININE RATIO 20.2 (10.0-20.0); CALCIUM 9.6 MG/DL (8.5-10.1); CHLORIDE 100 MMOL/L (99-107); CREATININE 0.89 MG/DL (0.40-0.90); GLUCOSE 126 MG/DL (70-104); POTASSIUM 4.5 MMOL/L (3.5-5.1); SODIUM 138 MMOL/L (135-145); TOTAL CARBON DIOXIDE 33.6 MMOL/L (24-32); eGFR 66 ML/MIN
[2022-07-16 09:52] LABS: APTT 33 SECONDS (22-32)
== END 2022-07-16 23:59 | disposition home or self-care (01) ==
LOC: LAB 07:23 → EDSTATUS 07-20 14:00
PROVIDERS: ATTEND Student in an Organized Health Care Education/Training Program
DX: Z01.812 Encounter for preprocedural laboratory examination (principal); I50.22 Chronic systolic (congestive) heart failure; I48.91 Unspecified atrial fibrillation; R06.02 Shortness of breath
CPT/HCPCS: 36415; 80048; 85025; 85610; 85730; A4620; J7030